=== PATIENT | female | born 1990 | race Hispanic/Latino ===

== ENCOUNTER → 2017-05-26 | Outpatient (CLI) | payer OTHER ==
--- NOTE | 2017-05-26 09:39 | Diagnostic Imaging Report ---
PROCEDURE:ABDOMINAL ULTRASOUND COMPARISON:None. INDICATION:Elevated liver function tests. TECHNIQUE:Regan scale and color Doppler ultrasound liver FINDINGS: The proximal abdominal aorta is of normal caliber. The mid and distal segments are obscured. Inferior vena cava at the level of the liver is patent. Normal pancreatic head and proximal body. The distal body and tail are obscured by bowel gas. Right liver span 16.2 cm. Diffusely increased and coarsened echotexture with a nodular liver margin. Portal vein diameter 1.1 cm. Normal flow direction. Normal gallbladder. Wall thickness 2 mm. Common bile duct diameter 3 mm. Right kidney: 9.1 x 4.2 x 5 cm Left kidney: 10.2 x 4.7 x 4.9 cm Both kidneys are normal. Splenic length 10 cm. No ascites. CONCLUSION: Echogenic liver consistent with steatosis. Edge nodularity suggest developing cirrhosis. Dictated by: Demetri Pratt M.D. on 05/26/2017 at 9:48 Electronically approved by: Demetri Pratt M.D. on 05/26/2017 at 9:48
== END ==
LOC: US 08:39
PROVIDERS: ATTEND Family Medicine
DX: R74.8 Abnormal levels of other serum enzymes (principal)
CPT/HCPCS: 76700

== ENCOUNTER → 2020-05-20 | Outpatient (CLI) | payer BC | LOC: US 08:50 | PROVIDERS: ATTEND Family Medicine | DX: R74.8 Abnormal levels of other serum enzymes (principal) | CPT/HCPCS: 76700 ==